=== PATIENT | female | born 1940 | race African-American/Black ===

== ENCOUNTER 2016-04-18 16:13 | Emergency (ER) | payer OTHER ==
[2016-04-18 16:30] VITALS: BP 166/75; PULSE 66; TEMP 99.1; BMI 23.3
[2016-04-18] MEDS ORDERED: predniSONE 20 MG TABLET (UD) PO ONE (20:54)
[2016-04-18] MEDS ORDERED: predniSONE 20 MG TABLET (UD) ONE (20:59)
--- NOTE | 2016-04-18 21:01 | PDOC ---
History of Present Illness - General Chief Complaint: Shortness of Breath Stated Complaint: SHORTNESS OF BREATH Time Seen by Provider: 04/18/16 19:38 History Source: Patient, Family Exam Limitations: No Limitations - History of Present Illness Initial Comments: 04/18/16 20:59 75 yo Female patient presents to ED c/o SOB x 3 days. Patient son reports patient having a history of asthma. They deny fever, CP, back pain, abd pain, cough, dizziness, or any other complaints at this time. Timing/Duration: reports: week Severity: reports: moderate Possible Cause: Yes: occasional episodes Modifying Factors: improves with: albuterol inhaler, albuterol nebulizer Associated Symptoms: reports: denies symptoms Past History - Travel Traveled outside of the country in the last 30 days: No Close contact w/someone who was outside of country & ill: No - Past Medical History Allergies/Adverse Reactions: Allergies Allergy/AdvReac Type Severity Reaction Status Date / Time No Known Allergies Allergy Verified 04/18/16 16:28 Home Medications: Ambulatory Orders Albuterol Sulfate Inhaler - [Ventolin Hfa Inhaler -] 1 - 2 inh PO QID 04/20/15 Brimonidine Tartrate/Timolol [Combigan Eye Drops] 1 drop OP BID #1 bottle Brimonidine Tartrate/Timolol [Combigan Eye Drops] 5 ml OP ASDIR 04/20/15 Carvedilol [Coreg] 25 mg PO BID #60 tablet 04/20/15 Enalapril Maleate [Vasotec -] 20 mg PO BID #60 tablet 04/20/15 Nifedipine 20 mg PO BID #60 capsule 04/20/15 Potassium Chloride [Klor-Con M20] 20 meq PO DAILY #30 tab.er.prt 04/20/15 Naproxen [Naprosyn -] 500 mg PO BID PRN #21 tablet 05/05/15 Azithromycin [Zithromax -] 250 mg PO DAILY #4 tablet 04/18/16 Prednisone [Deltasone -] 30 mg PO DAILY #9 tablet 04/18/16 Cardiac Disorders: Yes (?) HTN: Yes - Psycho/Social/Smoking Cessation Hx Anxiety: No Suicidal Ideation: No Smoking History: Former smoker Have you smoked in the past 12 months: No Information on smoking cessation initiated: No Hx Alcohol Use: No Drug/Substance Use Hx: No Substance Use Type: None Respiratory Specific PMHX - Complaint Specific PMHX Angina: No Bronchitis: No Pneumonia: No Pulmonary Embolus: No TB (Tuberculosis): No Review of Systems - Review of Systems Constitutional: No: Chills, Fever, Night Sweats Respiratory: Yes: Shortness of Breath, Wheezing. No: Cough, Stridor Cardiac (ROS): No: Chest Pain, Chest Tightness ABD/GI: No: Diarrhea, Nausea, Vomiting : No: Dysuria Musculoskeletal: No: Back Pain Neurological: No: Headache, Dizziness *Physical Exam - Vital Signs Last Vital Signs Temp Pulse Resp BP Pulse Ox 99.1 F 66 19 166/75 100 04/18/16 16:28 04/18/16 16:28 04/18/16 16:28 04/18/16 16:28 04/18/16 16:28 - Physical Exam General Appearance: Yes: Nourished, Appropriately Dressed, Mild Distress Neck: positive: Trachea midline, Supple Respiratory/Chest: positive: Wheezing Cardiovascular: positive: Regular Rhythm, Regular Rate Gastrointestinal/Abdominal: positive: Normal Bowel Sounds, Soft Musculoskeletal: positive: Normal Inspection. negative: CVA Tenderness Extremity: positive: Normal Capillary Refill, Normal Inspection, Normal Range of Motion Integumentary: positive: Normal Color, Dry, Warm Neurologic: positive: online content coordinator II-XII NML intact, Fully Oriented, Alert, Normal Mood/ Affect, Normal Response, Motor Strength 5/5 ED Treatment Course - LABORATORY CBC & Chemistry Diagram: 04/18/16 21:07 04/18/16 21:07 - RADIOLOGY Radiology Studies Ordered: Category Date Time Status CHEST PA & LAT [RAD] Stat Radiology 04/18/16 19:54 Completed *DC/Admit/Observation/Transfer Diagnosis at time of Disposition: Asthma Qualifiers: Asthma severity: mild intermittent Asthma complication type: with acute exacerbation Qualified Code(s): J45.21 - Mild intermittent asthma with (acute) exacerbation - Discharge Dispostion Disposition: HOME Condition at time of disposition: Stable Admit: No - Prescriptions Prescriptions: Prednisone [Deltasone -] 30 mg PO DAILY #9 tablet Azithromycin [Zithromax -] 250 mg PO DAILY #4 tablet - Patient Instructions Printed Discharge Instructions: DI for Asthma -- Adult, DI for Acute Bronchitis Additional Instructions: FOLLOW UP WITH YOUR PRIMARY CARE PROVIDER OR [facility] TO ESTABLISH CARE. TAKE MEDICATIONS PRESCRIBED WITH FOOD. RETURN IF SYMPTOMS WORSEN. IF YOU CONTINUE TO EXPERIENCE WHEEZING, DO NEBULIZER TREATMENTS EVERY 4 HOURS NEEDED. Print Language: BURKINAN
--- NOTE | 2016-04-18 21:31 | PDOC ---
*Physical Exam - Vital Signs Last Vital Signs Temp Pulse Resp BP Pulse Ox 99.1 F 66 19 166/75 100 04/18/16 16:28 04/18/16 16:28 04/18/16 16:28 04/18/16 16:28 04/18/16 16:28 ED Treatment Course - LABORATORY CBC & Chemistry Diagram: 04/18/16 21:07 04/18/16 21:07 - Medications Given in the ED: ED Medications Discontinued Medications Generic Name Dose Route Start Last Admin Trade Name Danielle PRN Reason Stop Dose Admin Prednisone 40 mg 04/18/16 20:54 04/18/16 21:01 Deltasone - PO 04/18/16 20:55 40 mg ONCE ONE Administration Medical Decision Making - Medical Decision Making 04/18/16 21:31 agree with care from MICHELLE Davenport *DC/Admit/Observation/Transfer Diagnosis at time of Disposition: Asthma - Discharge Dispostion Disposition: HOME - Prescriptions Prescriptions: Prednisone [Deltasone -] 30 mg PO DAILY #9 tablet Azithromycin [Zithromax -] 250 mg PO DAILY #4 tablet - Patient Instructions Printed Discharge Instructions: DI for Asthma -- Adult, DI for Acute Bronchitis Additional Instructions: FOLLOW UP WITH YOUR PRIMARY CARE PROVIDER OR [facility] TO ESTABLISH CARE. TAKE MEDICATIONS PRESCRIBED WITH FOOD. RETURN IF SYMPTOMS WORSEN. IF YOU CONTINUE TO EXPERIENCE WHEEZING, DO NEBULIZER TREATMENTS EVERY 4 HOURS NEEDED. Print Language: GAMBIAN
[2016-04-18 21:33] LABS: MCH 26.2 pg (25.7-33.7); MCHC 31.6 g/dl (32.0-36.0); MEAN CELL VOLUME 83.2 fl (80-96); MEAN PLT VOLUME 9.8 fl (7.5-11.1); PLATELET COUNT 208 K/MM3 (134-434); RDW 14.9 % (11.6-15.6); WHITE BLOOD COUNT 10.8 K/mm3 (4.0-10.0)
[2016-04-18 21:54] LABS: CALCIUM 8.7 mg/dL (8.5-10.1); CREATININE 1.1 mg/dL (0.55-1.02)
[2016-04-18] MEDS ORDERED: AZITHROMYCIN 250 MG TABLET (FP) PO ONE (22:15)
[2016-04-18] MEDS ORDERED: AZITHROMYCIN 250 MG TABLET (FP) ONE (22:20)
== END 2016-04-18 22:23 | disposition home or self-care (01) ==
LOC: JER 16:13
DX: J45.21 Mild intermittent asthma with (acute) exacerbation (principal)
CPT/HCPCS: 36415; 71020-TC; 80048; 85027; 99282-25

== ENCOUNTER 2018-12-26 12:11 | Emergency (ER) | payer OTHER ==
[2018-12-26 12:25] VITALS: BMI 23.3
--- NOTE | 2018-12-26 12:46 | PDOC ---
History of Present Illness - General Chief Complaint: Pain Stated Complaint: ABD PAIN Time Seen by Provider: 12/26/18 12:25 History Source: Patient Exam Limitations: No Limitations - History of Present Illness Initial Comments: 12/26/18 12:45 78 yo F with a hx of HTN presents to the emergency department with periumbilical pain for 3 days. Per the patient, she began having gradual onset of pain after eating lettuce. She took a pepcid with minimal relief. Pain is described as a burning sensation, non radiating, without aggravating symptoms ( food does not worsen pain). Denies hx of ulcers, gallbladder disease, pancreatitis, and SBO. Endorses having a C/S 40+ years ago. Denies the following : fever, chills, SOB, chest pain, nausea, vomiting, lightheadedness, dizziness, hematochezia, dysuria, hematuria, and leg pain/swelling. Endorses melena for 1 day. Last cardiac work up this year which was within normal limits (per nuclear study). Allergies: NKDA Shx: Refer to above Meds: anti-HTN (does not remember name), and aspirin Social: Denies tobacco, alcohol, and substance abuse. Past History - Past Medical History Allergies/Adverse Reactions: Allergies Allergy/AdvReac Type Severity Reaction Status Date / Time No Known Allergies Allergy Verified 12/26/18 12:25 Home Medications: Ambulatory Orders Albuterol Sulfate Inhaler - [Ventolin Hfa Inhaler -] 1 - 2 inh PO QID 04/20/15 Brimonidine Tartrate/Timolol [Combigan Eye Drops] 1 drop OP BID #1 bottle Carvedilol [Coreg] 25 mg PO BID #60 tablet 04/20/15 Enalapril Maleate [Vasotec -] 20 mg PO BID #60 tablet 04/20/15 Nifedipine 20 mg PO BID #60 capsule 04/20/15 Potassium Chloride [Klor-Con M20] 20 meq PO DAILY #30 tab.er.prt 04/20/15 Naproxen [Naprosyn -] 500 mg PO BID PRN #21 tablet 05/05/15 Cardiac Disorders: Yes (?) COPD: No HTN: Yes - Suicide/Smoking/Psychosocial Hx Smoking History: Unknown if ever smoked Have you smoked in the past 12 months: No Hx Alcohol Use: No Drug/Substance Use Hx: No Substance Use Type: None Review of Systems - Review of Systems Able to Perform ROS?: Yes Is the patient limited Azeri proficient: No Constitutional: No: Chills, Diaphoresis, Fever, Weakness HEENTM: No: Eye Pain, Ear Pain, Nose Pain, Throat Pain, Mouth Pain Respiratory: No: Cough, Shortness of Breath, Hemoptysis Cardiac (ROS): No: Chest Pain, Lightheadedness, Palpitations, Syncope, Chest Tightness ABD/GI: Yes: Abdominal cramping, Tarry Stools. No: Abdominal Distended, Constipated, Diarrhea, Nausea, Poor Appetite, Poor Fluid Intake, Rectal Bleeding , Vomiting, Indigestion : No: Burning, Dysuria, Hematuria Musculoskeletal: No: Back Pain, Joint Pain, Neck Pain Integumentary: No: Bruising, Erythema, Rash Neurological: No: Headache, Numbness, Tingling, Tremors Psychiatric: No: Change in Appetite Endocrine: No: Unexplained Weight Gain Hematologic/Lymphatic: No: Anemia *Physical Exam - Vital Signs Last Vital Signs Temp Pulse Resp BP Pulse Ox 98.4 F 70 16 177/77 H 100 12/26/18 12:15 12/26/18 12:15 12/26/18 12:15 12/26/18 12:15 12/26/18 12:15 - Physical Exam General Appearance: Yes: Nourished, Appropriately Dressed. No: Apparent Distress, Intoxicated HEENT: positive: EOMI, YESSENIA, Normal Voice, Symmetrical, Pharynx Normal, Hearing Grossly Normal. negative: Pale Conjunctivae, Scleral Icterus (R), Scleral Icterus (L), Muffled/Hoarse voice, Pharyngeal Erythema, Tonsillar Exudate, Tonsillar Erythema, Nasal Congestion, Rhinorrhea, Sinus Tenderness, Excessive drooling Neck: positive: Trachea midline, Supple. negative: Tender, Lymphadenopathy (R) , Lymphadenopathy (L), Tender lateral, Tender midline Respiratory/Chest: positive: Lungs Clear, Normal Breath Sounds. negative: Chest Tender, Respiratory Distress, Accessory Muscle Use, Crackles, Rales, Rhonchi, Stridor, Wheezing Cardiovascular: positive: Regular Rhythm, Regular Rate, S1, S2. negative: Systolic Murmur Gastrointestinal/Abdominal: positive: Normal Bowel Sounds, Tender (periumbilical , LLQ, and lower midline tenderness. no rebound), Flat, Soft. negative: Distended, Guarding, Rebound Rectal Exam: positive: normal rectal tone, melena, hemorrhoids (external). negative: decreased tone Lymphatic: negative: Adenopathy Musculoskeletal: positive: Normal Inspection. negative: CVA Tenderness, Vertebral Tenderness Extremity: positive: Normal Capillary Refill, Normal Inspection, Normal Range of Motion. negative: Tender Integumentary: positive: Normal Color, Dry, Warm Neurologic: positive: storage receipt poster II-XII NML intact, Fully Oriented, Alert, Normal Mood/ Affect, Normal Response ED Treatment Course - LABORATORY CBC & Chemistry Diagram: 12/26/18 13:50 12/26/18 13:50 Medical Decision Making - Medical Decision Making 12/26/18 13:03 78 yo F with a hx of HTN presents to the emergency department with periumbilical pain for 3 days. Per the patient, she began having gradual onset of pain after eating lettuce. Initial vitals; Initial Vital Signs Temp Pulse Resp BP Pulse Ox 98.4 F 70 16 177/77 H 100 12/26/18 12:15 12/26/18 12:15 12/26/18 12:15 12/26/18 12:15 12/26/18 12:15 Work up: patient had a nuclear study done 07/2018 within normal limits. in addition, known to have nodularity in the posterior segment in the right upper lobe with improvement from previous CT. 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 due to age, hx, and physical exam; differential is broad/ cardiac: acs vs PNA vs abdominal aneurysm GI: SBO vs colitis vs pancreatitis vs cholelithiasis vs cholecystitis (patient states it sometimes radiates to the RUQ) vs gastroenteritis vs gastritis vs GERD : UTI vs nephrolithiasis Resp: lower lobe PNA Orders: cbc, cmp, lactic acid, troponin, lipase, ua, urine culture, cxr, POCUS abdomen, ekg Interventions: pepcid, NS, and tylenol. POCUS: dilatation of the proximal aorta (3.2 cm) and cholelithiasis noted without GB wall thickening or pericholecystic fluid. However, CBD possibly dilated at 0.7 cm. Will order RUQ US formal. Rectal exam melenotic. Laboratory Tests 12/26/18 12/26/18 12/26/18 13:50 13:50 13:50 WBC 5.9 RBC 4.67 Hgb 12.0 Hct 36.9 MCV 79.1 L MCH 25.6 L MCHC 32.4 RDW 17.3 H Plt Count 169 MPV 10.0 Absolute Neuts (auto) 3.5 Neutrophils % 59.7 Lymphocytes % 26.7 Monocytes % 10.3 H Eosinophils % 2.6 Basophils % 0.7 Nucleated RBC % 0 Sodium 140 Potassium 3.7 Chloride 104 Carbon Dioxide 30 Anion Gap 6 L BUN 18.4 H Creatinine 1.1 Est GFR (CKD-EPI)AfAm 56.48 Est GFR (CKD-EPI)NonAf 48.73 Random Glucose 84 Lactic Acid 0.9 Calcium 9.1 Total Bilirubin 0.6 AST 25 ALT 21 Alkaline Phosphatase 90 Creatine Kinase Troponin I Total Protein 7.9 Albumin 3.8 Lipase Urine Color Urine Appearance Urine pH Ur Specific [place] Urine Protein Urine Glucose (UA) Urine Ketones Urine Blood Urine Nitrite Urine Bilirubin Urine Urobilinogen Ur Leukocyte Esterase Stool Occult Blood 12/26/18 12/26/18 12/26/18 13:50 13:50 13:50 WBC RBC Hgb Hct MCV MCH MCHC RDW Plt Count MPV Absolute Neuts (auto) Neutrophils % Lymphocytes % Monocytes % Eosinophils % Basophils % Nucleated RBC % Sodium Potassium Chloride Carbon Dioxide Anion Gap BUN Creatinine Est GFR (CKD-EPI)AfAm Est GFR (CKD-EPI)NonAf Random Glucose Lactic Acid Calcium Total Bilirubin AST ALT Alkaline Phosphatase Creatine Kinase 138 Troponin I < 0.02 Total Protein Albumin Lipase 144 Urine Color Yellow Urine Appearance Clear Urine pH 7.5 Ur Specific [place] 1.044 H Urine Protein Negative Urine Glucose (UA) Negative Urine Ketones Negative Urine Blood Negative Urine Nitrite Negative Urine Bilirubin Negative Urine Urobilinogen 0.2 Ur Leukocyte Esterase Negative Stool Occult Blood Negative labs within normal limits. CT of the abdomen and pelvis shows diverticulosis and left ovarian cyst measuring ~2.5 cm x 2.5 cm with thickened wall. A copy of the CT report was given to the patient. The patient was reassessed. No tenderness in the abdomen and her pain has resolved. US shows cholelithiasis that is mobile with borderline dilatation of the CBD. Patient to be discharged with follow up with surgery and obgyn. Patient was stable at time of discharge. DIspo: Discharge *DC/Admit/Observation/Transfer Diagnosis at time of Disposition: Cholelithiasis, Left ovarian cyst - Discharge Dispostion Disposition: HOME Decision to Admit order: No - Referrals Referrals: Etienne Field MD [Staff Physician] - Viki Hernandez MD [Primary Care Provider] - Andressa Choudhary MD [Staff Physician] - - Patient Instructions Printed Discharge Instructions: Gallstones, DI for Gallstones Additional Instructions: You were seen in the emergency department for your abdominal pain. Your US shows gallstones in your gallbladder without signs of infection. Your labs are within normal limits. No urinary tract infection was noted. Please follow up with the referred surgeon within 1 week after discharge. This is very important. Your gallstone can become infected and can present complications in the future. It is best to be evaluated by the surgeon as soon as possible. Please return to the emergency department if you have worsening pain or new concerning symptoms such as fevers, chills, uncontrollable nausea and vomiting, and severe pain. Thank you. Please follow up with the OBGYN physician referred to you within 1 week after discharge. - Post Discharge Activity
[2018-12-26] MEDS ORDERED: ACETAMINOPHEN 1000 MG/100 ML VIAL (NON FORMULARY) IVPB ONE (13:04)
[2018-12-26] MEDS ORDERED: SODIUM CHLORIDE 1,000 ML IV STA (13:04)
[2018-12-26] MEDS ORDERED: FAMOTIDINE 20 MG/50 ML IVPB 20 MG/50 ML MG IVPB ONE ×2 (13:04→13:59)
[2018-12-26] MEDS ORDERED: ACETAMINOPHEN INJECTION 100 ML IVPB ONE (13:59)
[2018-12-26 14:08] LABS: BASO % 0.7 % (0-2.0); EOS % 2.6 % (0-4.5); HEMATOCRIT 36.9 % (32.4-45.2); LYMPH % 26.7 % (8-40); MCH 25.6 pg (25.7-33.7); MCHC 32.4 g/dl (32.0-36.0); MEAN CELL VOLUME 79.1 fl (80-96); MONO % 10.3 % (3.8-10.2); NEUT % 59.7 % (42.8-82.8); PLATELET COUNT 169 K/MM3 (134-434); RBC 4.67 M/mm3 (3.60-5.2); RDW 17.3 % (11.6-15.6); WHITE BLOOD COUNT 5.9 K/mm3 (4.0-10.0)
[2018-12-26 14:30] LABS: ALBUMIN 3.8 g/dl (3.4-5.0); BILIRUBIN,TOTAL 0.6 mg/dL (0.2-1); BLOOD UREA NITROGEN 18.4 mg/dL (7-18); CALCIUM 9.1 mg/dL (8.5-10.1); CREATININE 1.1 mg/dL (0.55-1.3); POTASSIUM 3.7 mmol/L (3.5-5.1); TOT PROT 7.9 g/dl (6.4-8.2)
[2018-12-26 14:31] LABS: LIPASE 144 U/L (73-393)
--- NOTE | 2018-12-26 16:21 | PDOC ---
Documentation entered by Avis Bernal SCRIBE, acting as scribe for Jacques Francisco MD. Jacques Francisco MD: This documentation has been prepared by the sharynibeGabe Natalie, SCRIBE, under my direction and personally reviewed by me in its entirety. I confirm that the documentation accurately reflects all work, treatment, procedures, and medical decision making performed by me. Attending Attestation - Resident Resident Name: Abiel Fields - ED Attending Attestation I have performed the following: I have examined & evaluated the patient, The case was reviewed & discussed with the resident, I agree w/resident's findings & plan, Exceptions are as noted - HPI HPI: 12/26/18 14:19 The patient is a 78-year-old female, with a past medical history of HTN, who presents to the ED with 3 days of periumbilical pain after eating lettuce. She describes the pain as constant, burning in sensation, nonradiating, with no exacerbating factors. She reports taking Pepcid with minimal relief of her symptoms and endorses 1 day of dark stool. The patient denies any fevers, chills, nausea, vomiting, diarrhea, or hematochezia. Denies any urinary symptoms. Denies any chest pain or shortness of breath. Allergies: NKA PCP: Dr. Hernandez 12/26/18 16:57 - Physicial Exam PE: 12/26/18 14:26 Exam: Vitals: Triage Vital signs reviewed General Appearance: no acute distress, well nourished well developed, Head: Atraumatic, normocephalic Neck: Supple;No Nuchal rigidity Chest Wall: Nontender Cardiac: Regular rate and rhythm, no murmurs, no rubs, no gallops, Lungs: Clear to auscultation bilateral, good air movement bilaterally, Abdomen: Soft, nondistended, normal bowel sounds, nontender to palpation Extremities: Full range of motion to all extremities, no cyanosis, clubbing, or edema Skin: Warm and dry, no rashes or lesions, no petechiae Neuro: AOX3; Cranial Nerves 2-12 grossly intact, Strength intact to all extremities, Sensation intact to all extremities Psych: normal mood, normal affect - Medical Decision Making 12/26/18 16:57 The patient is a 78-year-old female, with a past medical history of HTN, who presents to the ED with 3 days of periumbilical pain after eating lettuce. She describes the pain as constant, burning in sensation, nonradiating, with no exacerbating factors. She reports taking Pepcid with minimal relief of her symptoms and endorses 1 day of dark stool. Patient completely asymptomatic at this moment her CAT scan demonstrates no acute pathology a mildly thickened ovarian cyst was noticed her urinalysis is pending repeat abdominal examination benign if urinalysis negative patient can be discharged home
[2018-12-26 17:12] LABS: PH,URINE 7.5 (5.0-8.0); URINE APPEARANCE CLEAR; URINE BILIRUBIN NEGATIVE (NEGATIVE); URINE COLOR YELLOW; URINE GLUCOSE (UA) NEGATIVE (NEGATIVE); URINE KETONE NEGATIVE (NEGATIVE); URINE LEUK ESTERASE NEGATIVE (NEGATIVE); URINE NITRITE NEGATIVE (NEGATIVE); URINE PROTEIN NEGATIVE (NEGATIVE); URINE UROBILINOGEN 0.2 mg/dL (0.2-1.0)
[2018-12-26 17:51] VITALS: BP 148/98; PULSE 64; TEMP 97.6
--- NOTE | 2018-12-27 15:09 | EKG ---
Test Reason : Blood Pressure : / mmHG Vent. Rate : 062 BPM Atrial Rate : 062 BPM P-R Int : 226 ms QRS Dur : 096 ms QT Int : 438 ms P-R-T Axes : 018 014 085 degrees QTc Int : 444 ms SINUS RHYTHM WITH 1ST DEGREE A-V BLOCK NONSPECIFIC T WAVE ABNORMALITY ABNORMAL ECG WHEN COMPARED WITH ECG OF 20-APR-2015 12:08, T WAVE INVERSION NO LONGER EVIDENT IN LATERAL LEADS Confirmed by MD NOHELIA, KAY ([id number]) on 12/27/2018 3:08:41 PM Referred By: Confirmed By:KAY POZO MD
== END 2018-12-26 17:51 | disposition home or self-care (01) ==
LOC: JER 12:11
PROC: 3E033NZ Introduction of Analgesics, Hypnotics, Sedatives into Peripheral Vein, Percutaneous Approach (ICD-10-PCS; principal; 2018-12-26)
PROC: 3E033GC Introduction of Other Therapeutic Substance into Peripheral Vein, Percutaneous Approach (ICD-10-PCS; 2018-12-26)
PROC: 3E0337Z Introduction of Electrolytic and Water Balance Substance into Peripheral Vein, Percutaneous Approach (ICD-10-PCS; 2018-12-26)
DX: N83.202 Unspecified ovarian cyst, left side (principal); K80.20 Calculus of gallbladder without cholecystitis without obstruction; I10 Essential (primary) hypertension
CPT/HCPCS: 36415; 74177-TC; 76705-TC; 80053; 81003; 82272; 82550; 83605; 83690; 84484; 85025; 87086; 93005; 93010; 96361; 96365; 96375; 99283-25; J0131; J7030

== ENCOUNTER 2019-02-27 06:07 | Day surgery (SDC) | payer OTHER ==
[2019-02-26 16:45] VITALS: BMI 27.4
[2019-02-27] MEDS ORDERED: BUPIVACAINE HCL/PF 0.5% (5 MG/ML) 30 ML VIAL IJ ONE ×3 (07:14→09:14)
[2019-02-27] MEDS ORDERED: ePHEDrine SULFATE 50 MG/1 ML AMPULE ONE (07:29)
[2019-02-27] MEDS ORDERED: ROCURONIUM BROMIDE 50 MG/5 ML SYRINGE ONE ×2 (07:30)
[2019-02-27] MEDS ORDERED: SUCCINYLCHOLINE CHLORIDE 200 MG/10 ML SYRINGE ONE (07:30)
[2019-02-27] MEDS ORDERED: PROPOFOL 20 ML ONE ×4 (07:30→09:38)
[2019-02-27] MEDS ORDERED: MIDAZOLAM HCL 2 MG/2 ML SINGLE DOSE VIAL ONE (07:32)
[2019-02-27] MEDS ORDERED: fentaNYL CITRATE 250 MCG/5 ML VIAL ONE (07:32)
--- NOTE | 2019-02-27 08:03 | HP ---
History & Physical Update - History History: No Change - Physical Physical: No Change - Assessment Assessment: No Change - Plan Plan: No Change (Last updated on 02/12/19)
[2019-02-27] MEDS ORDERED: ceFAZolin SODIUM 1 GM VIAL IVPB ONE (08:25)
[2019-02-27] MEDS ORDERED: ONDANSETRON 4 MG/2 ML VIAL IVPUSH PRN (08:55)
[2019-02-27] MEDS ORDERED: ACETAMINOPHEN 1000 MG/100 ML VIAL (NON FORMULARY) IVPB ONE ×2 (08:56→11:36)
[2019-02-27] MEDS ORDERED: LACTATED RINGERS SOLUTION 1,000 ML IV SCH (09:00)
--- NOTE | 2019-02-27 09:15 | OP ---
DATE OF OPERATION: 02/27/2019 PREOPERATIVE DIAGNOSIS: Endometrial hyperplasia, endometrial polyps. POSTOPERATIVE DIAGNOSIS: Submucosal myoma and endometrial polyp. OPERATION: Hysteroscopic myomectomy, suction dilation and curettage. SURGEON: Caitlin Rodriguez MD PROCEDURE: Patient was taken to the operating room and placed in a dorsal lithotomy position, prepped and draped in the usual sterile fashion. A time-out was performed in accordance with hospital regulation. Speculum was placed in the vagina. Anterior lip of the cervix was grasped with a single-tooth tenaculum. Cervix then dilated to accommodate the operative hysteroscope. Operative hysteroscope was inserted, and submucosal myoma and endometrial polyps were seen. Cautery and cutting of the endometrial polyps and submucosal myoma was then done. Suction dilation and curettage was done. Repeated procedure until the endometrial cavity was noted to be clean. All instruments were then removed. Patient had tolerated procedure well. Estimated blood loss 5 mL. Andreina [id number]
[2019-02-27] MEDS ORDERED: NEOSTIGMINE METHYLSULFATE 0.5 MG/ML - 10 ML MDV ONE (09:39)
[2019-02-27] MEDS ORDERED: LABETALOL HCL 5 MG/1 ML (100MG/20 ML VIAL) ONE (09:45)
[2019-02-27] MEDS ORDERED: GLYCOPYRROLATE 0.2 MG/1 ML VIAL ONE (09:45)
[2019-02-27] MEDS ORDERED: DEXAMETHASONE SOD PHOSPHATE 4 MG/1 ML VIAL ONE (09:45)
--- NOTE | 2019-02-27 09:53 | OP ---
Operative Note - Note: Operative Date: 02/27/19 Pre-Operative Diagnosis: chronic cholecystitis Operation: laparoscopic cholecystectomy Findings: contracted gb Post-Operative Diagnosis: Same as Pre-op Surgeon: Armen Kennedy Is Support Analyst: William Carmona Anesthesia: General Specimens Removed: gallbladder Estimated Blood Loss (mls): 1 Operative Report Dictated: Yes
--- NOTE | 2019-02-27 10:11 | OP ---
DATE OF OPERATION: 02/27/2019 PROCEDURE: Laparoscopic cholecystectomy. PREOPERATIVE DIAGNOSIS: Chronic cholecystitis and cholelithiasis. POSTOPERATIVE DIAGNOSIS: Chronic cholecystitis and cholelithiasis. SURGEON: Armen Kennedy MD ROLLER PRINT TENDER: JAMAL Valencia ANESTHESIA: General endotracheal. FINDINGS AND PROCEDURE: This is a 78-year-old female who presents with intermittent right upper quadrant pain radiating to the back aggravated by fatty meals. An ultrasound of the gallbladder revealed cholelithiasis. On physical exam, patient has soft abdomen with just mild right upper quadrant tenderness. The patient was advised elective cholecystectomy, and consent was obtained after discussing the risks, benefits, and alternatives of the procedure. Patient was brought to the operating room and placed in supine position. General endotracheal anesthesia was administered. The abdomen was prepped and draped in the usual sterile fashion. Using 0.5% Marcaine, local anesthesia was administered to the proposed incision site. The peritoneal cavity was entered using the Optiview technique where a 5-mm umbilical incision using a 5-mm 30-degree degree scope inserted in a 5-mm optical scope. Pneumoperitoneum was established. Patient was then placed in reverse Trendelenburg left side down position. A 12-mm port was inserted at the subxiphoid region, and two 5-mm ports were inserted at the right subcostal region at the midclavicular and anterior axillary line. The gallbladder fundus was identified and grasped and retracted superiorly. Congenital adhesions of the infundibulum to the stomach were taken down sharply using the hook dissector connected to monopolar cautery. The infundibulum was grasped and retracted inferolaterally to expose the hepatocystic triangle. The visceral peritoneum covering the triangle was scored using the hook dissector connected to monopolar cautery towards the gallbladder bed. A window was created between the gallbladder bed and the proximal gallbladder wall behind the presumed cystic artery creating a critical view of safety. Cystic duct and cystic artery were isolated using the [place] dissector. The cystic artery was initially clipped at 3 points followed by transection leaving 2 clips at the cystic artery stump. Cystic duct was also clipped at 3 points followed by transection leaving 2 clips at the cystic duct stump. The gallbladder was resected from its bed in antegrade fashion using the hook dissector connected to monopolar cautery. When this was completed, the gallbladder was placed in the Endobag and extracted via the subxiphoid port. The gallbladder bed was inspected and was noted to be free of active bleeding. The pneumoperitoneum was evacuated, and the ports were removed. The ports were closed with subcuticular Biosyn 4-0 sutures reinforced with Dermabond. Patient was successfully extubated and transferred to the post anesthesia care unit in satisfactory condition. Estimated blood loss was 1 mL. Wound class clean, contaminated. Patient received 2 g of Ancef prior to the start of the procedure. Andreina [id number] MTDD
--- NOTE | 2019-02-27 10:25 | SURG ---
Surgery Console Operator Note Console Operator: William Carmona PA-C (Suzy) Date of Service: 02/27/19 Diagnosis: chronic cholecystitis Procedure: Operation: laparoscopic cholecystectomy I was present for the entirety of the operative procedure. For further detail, please refer to operative report. Visit type - Case Type Case Type: Scheduled - Emergency Emergency Visit: No - New patient This patient is new to me today: Yes Date on this admission: 02/27/19 - Critical Care Critical Care patient: No
[2019-02-27] MEDS ORDERED: ACETAMINOPHEN INJECTION 100 ML IVPB ONE (11:27)
[2019-02-27 14:07] VITALS: BP 144/80; PULSE 78; TEMP 98
--- NOTE | 2019-03-02 15:27 | PATH ---
Surgical Pathology Report Patient Name: SOLANGE ROSE [facility]. Rec. #: [id number] /Age/Gender: 1940 (Age: 78) / F Account: [id number] Location: [facility] [place] SURGICAL Taken: 02/27/2019 Received: 02/27/2019 Reported: 03/02/2019 Physicians: Andreina Bender M.D. Specimen(s) Received A: ENDOMETRIAL POLYP, SUBMUCOSAL MYOMA B: ENDOMETRIAL CURETTINGS C: GALLBLADDER Clinical History Abdominal pain, endometrial polyp, cholelithiasis Final Diagnosis A. ENDOMETRIAL POLYP, "SUBMUCOSAL MYOMA", HYSTEROSCOPIC MYOMECTOMY: ENDOMETRIAL POLYP. B. ENDOMETRIAL CURETTINGS, SUCTION DILATION AND CURETTAGE: FRAGMENTS OF ENDOMETRIAL POLYP, BENIGN CERVICAL SQUAMOUS MUCOSA, AND RARE ENDOCERVICAL EPITHELIUM. C. GALLBLADDER, LAPAROSCOPIC CHOLECYSTECTOMY: CHRONIC CHOLECYSTITIS WITH CHOLELITHIASIS. ONE BENIGN PERIDUCTAL LYMPH NODE (0/). Electronically Signed Karin Bal M.D. Gross Description A. Received in formalin labeled "endometrial polyp, submucosal myoma," is a 3.2 x 1.0 x 0.3 cm pink-lawrence, polypoid portion of soft tissue. Also received within the same container is a 1.2 x 0.7 x 0.2 cm aggregate of lawrence-pink soft tissue fragments. The specimen is submitted in toto in one cassette. B. Received in formalin labeled "endometrial curettings," is a 1.9 x 1.5 x 0.3 cm aggregate of lawrence pink soft tissue fragments. The formalin is filtered and the specimen is entirely submitted in one cassette. C. Received in formalin, labeled "gallbladder," is an 8.8 x 2.1 x 2.0 cm. gallbladder with a 0.2 cm. in length portion of cystic duct attached. There is a 1.0 cm in greatest dimension lawrence-pink periductal lymph node present. The outer surface is lawrence-pink and varies from smooth to shaggy. The lumen contains green, tenacious bile as well as a 0.5 cm in greatest dimension black, irregular cholelith occluding the cystic duct the lumen. The mucosa is lawrence-brown and velvety. The wall of the gallbladder measures 0.1 cm. in thickness. Palliative Nurse sections are submitted in one cassette. 02/27/2019 located within [facility]02/27/2019
== END 2019-02-27 14:00 | disposition home or self-care (01) ==
LOC: JASU-SURG 06:07
PROVIDERS: ATTEND Obstetrics & Gynecology
PROC: 0UDB7ZX Extraction of Endometrium, Via Natural or Artificial Opening, Diagnostic (ICD-10-PCS; 2019-02-27)
PROC: 0UJD8ZZ Inspection of Uterus and Cervix, Via Natural or Artificial Opening Endoscopic (ICD-10-PCS; 2019-02-27)
PROC: 0FT44ZZ Resection of Gallbladder, Percutaneous Endoscopic Approach (ICD-10-PCS; principal; 2019-02-27 08:04)
PROC: 0UB98ZZ Excision of Uterus, Via Natural or Artificial Opening Endoscopic (ICD-10-PCS; 2019-02-27 08:04)
PROC: 0UB97ZX Excision of Uterus, Via Natural or Artificial Opening, Diagnostic (ICD-10-PCS; 2019-02-27 08:04)
DX: K80.10 Calculus of gallbladder with chronic cholecystitis without obstruction (principal); D25.0 Submucous leiomyoma of uterus; N84.0 Polyp of corpus uteri
CPT/HCPCS: 86850; 86900; 86901; 88304-TC; 88305-TC; 94760; J0131

== ENCOUNTER 2019-03-18 05:46 | Emergency (ER) | payer OTHER ==
[2019-03-18 06:17] VITALS: BMI 27.6
[2019-03-18] MEDS ORDERED: SODIUM CHLORIDE 1,000 ML IV STA (07:26)
[2019-03-18] MEDS ORDERED: FAMOTIDINE 20 MG/50 ML IVPB 20 MG/50 ML MG IVPB ONE ×2 (07:27→08:11)
[2019-03-18 08:29] LABS: URINE APPEARANCE CLEAR; URINE BILIRUBIN NEGATIVE (NEGATIVE); URINE COLOR YELLOW; URINE GLUCOSE (UA) NEGATIVE (NEGATIVE); URINE KETONE NEGATIVE (NEGATIVE); URINE LEUK ESTERASE NEGATIVE (NEGATIVE); URINE NITRITE NEGATIVE (NEGATIVE); URINE PROTEIN NEGATIVE (NEGATIVE)
[2019-03-18 09:23] LABS: BASO % 0.5 % (0-2.0); EOS % 0.6 % (0-4.5); HEMATOCRIT 37.8 % (32.4-45.2); HEMOGLOBIN 12.4 GM/dL (10.7-15.3); LYMPH % 24.2 % (8-40); MCH 26.5 pg (25.7-33.7); MCHC 32.9 g/dl (32.0-36.0); MEAN CELL VOLUME 80.6 fl (80-96); MEAN PLT VOLUME 9.5 fl (7.5-11.1); MONO % 6.5 % (3.8-10.2); NEUT % 68.2 % (42.8-82.8); PLATELET COUNT 189 K/MM3 (134-434); RBC 4.69 M/mm3 (3.60-5.2); RDW 16.4 % (11.6-15.6)
--- NOTE | 2019-03-18 09:41 | PDOC ---
Documentation entered by Eliazar Newton SCRIBE, acting as scribe for Eugenio Uriarte MD. Eugenio Uriarte MD: This documentation has been prepared by the Aman jorgensen Daniel, SCRIBE, under my direction and personally reviewed by me in its entirety. I confirm that the documentation accurately reflects all work, treatment, procedures, and medical decision making performed by me. History of Present Illness - General Chief Complaint: Pain, Acute Stated Complaint: ABD PAIN Time Seen by Provider: 03/18/19 07:18 History Source: Patient Exam Limitations: No Limitations - History of Present Illness Initial Comments: 03/18/19 07:40 Patient is a 78 year old female with a past medical history of cataracts, HTN, and asthma presents with lower abdominal pain, since last night, that is pressure like, 8/10, intermittent, and notes associated nausea, one episode of vomiting, and dizziness. She states that her current pain feels like the last time she had food poisoning. pt also c/o left eye pain, rednes, excessive lacrimation. denies eye melara/vision changes. Patient denies headache, lightheadedness. Denies fever, chills. Denies chest pain, shortness of breath. Denies diarrhea. Denies urinary symptoms. Allergies: NKA Social history: Denies tobacco and alcohol use. Surgical history: cholecystectomy (3 weeks ago) PCP: Viki Hernandez 03/18/19 09:43 Past History - Past Medical History Allergies/Adverse Reactions: Allergies Allergy/AdvReac Type Severity Reaction Status Date / Time No Known Allergies Allergy Verified 03/18/19 06:17 Home Medications: Ambulatory Orders Albuterol Sulfate Inhaler - [Ventolin HFA Inhaler -] 1 - 2 inh PO QID 04/20/15 Amlodipine Besylate [Norvasc -] 5 mg PO DAILY 02/26/19 Carvedilol [Coreg] 12.5 mg PO DAILY 02/26/19 Dorzolamide HCl [Trusopt 2% -] 1 drop OU BID 02/26/19 Latanoprost 2.5 ml OD HS 02/26/19 Lisinopril/Hydrochlorothiazide [Lisinopril-Hctz 10-12.5 mg Tab] 1 each PO DAILY 02/26/19 Montelukast Sodium [Singulair] 10 mg PO DAILY 02/26/19 Docusate Sodium [Colace] 100 mg PO BID 7 Days #14 capsule 02/27/19 Aspirin 81 mg PO DAILY 03/18/19 Anemia: No Asthma: Yes Cancer: No Cardiac Disorders: No (?) CVA: No COPD: No CHF: No Dementia: No Diabetes: No GI Disorders: No Disorders: No HTN: Yes Hypercholesterolemia: No Liver Disease: No Seizures: No Thyroid Disease: No - Psycho Social/Smoking Cessation Hx Smoking History: Never smoked Have you smoked in the past 12 months: No Number of Cigarettes Smoked Daily: 1,988 Hx Alcohol Use: No Drug/Substance Use Hx: No Substance Use Type: None Review of Systems - Review of Systems Able to Perform ROS?: Yes Comments:: 03/18/19 07:40 CONSTITUTIONAL: +dizziness. No fever, no chills, no fatigue EYES: No visual changes ENT: No ear pain, no sore throat CARDIOVASCULAR: No chest pain, no palpitations RESPIRATORY: No cough, no SOB GI: +abdominal pain. +nausea. +vomiting. No constipation, no diarrhea GENITOURINARY: No dysuria, no frequency, no hematuria MUSKULOSKELETAL: No backpain, no joint pain, no myalgias SKIN: No rash NEURO: No headache *Physical Exam - Vital Signs Last Vital Signs Temp Pulse Resp BP Pulse Ox 97.3 F L 67 18 174/84 H 100 03/18/19 05:46 03/18/19 05:46 03/18/19 05:46 03/18/19 05:46 03/18/19 05:46 - Physical Exam 03/18/19 08:11 CONSTITUTIONAL: Well-appearing; well-nourished; in no apparent distress HEAD: Normocephalic; atraumatic EYES: +conjunctival injection bilaterally left worse than right. +mild ptosis left eye. PERRL; EOM intact; od: emelyn-c;ear, pupils is round, reactive; OS: conea is cloudy, pupil is enrique iregular, reactive ENMT: External appears normal; normal oropharynx NECK: Supple; non-tender; no cervical lymphadenopathy CARD: Normal S1, S2; no murmurs, rubs, or gallops RESP: Normal chest excursion with respiration; breath sounds clear and equal bilaterally; no wheezes, rhonchi, or rales ABD: +left lower quadrant tenderness to palpation. Soft, non-distended; no palpable organomegaly, no palpable hernias; lap choly scars noted. EXT: Normal ROM in all four extremities; non-tender to palpation; distal pulses intact SKIN: Warm, dry, no rash NEURO: No focal neurological deficiencies. ED Treatment Course - LABORATORY CBC & Chemistry Diagram: 03/18/19 08:35 03/18/19 08:35 - ADDITIONAL ORDERS Additional order review: Laboratory Results 03/18/19 08:20 Urine Color Yellow Urine Appearance Clear Urine pH 8.0 Ur Specific [place] 1.010 Urine Protein Negative Urine Glucose (UA) Negative Urine Ketones Negative Urine Blood Negative Urine Nitrite Negative Urine Bilirubin Negative Urine Urobilinogen 1.0 Ur Leukocyte Esterase Negative 03/18/19 08:35 RBC 4.69 MCV 80.6 MCHC 32.9 RDW 16.4 H MPV 9.5 Neutrophils % 68.2 Lymphocytes % 24.2 Monocytes % 6.5 Eosinophils % 0.6 Basophils % 0.5 - RADIOLOGY Radiology Studies Ordered: Category Date Time Status ABDOMEN & PELVIS CT W/O CONTR [CT] Stat CT Scan 03/18/19 07:27 Ordered - Medications Given in the ED: ED Medications Discontinued Medications Generic Name Dose Route Start Last Admin Trade Name Freq PRN Reason Stop Dose Admin Famotidine/Sodium Chloride 20 mg in 50 mls @ 100 mls/hr 03/18/19 07:27 08:49 Pepcid 20 Mg Premixed Ivpb - IVPB 03/18/19 07:56 100 mls/hr ONCE ONE Administration Sodium Chloride 1,000 mls @ 1,000 mls/hr 03/18/19 07:26 03/18/19 08:49 Normal Saline - IV 03/18/19 08:25 1,000 mls/hr ASDIR STA Administration Medical Decision Making - Medical Decision Making 03/18/19 11:52 Patient is a 78-year-old female who presented with atraumatic lower abdominal pain that has now resolved. CBC reveals no evidence of acute leukocytosis. CMP is within normal limits. Urinalysis reveals no evidence of pyuria. CT of abdomen pelvis reveals no evidence of acute diverticulitis. Chronic diverticulosis is noted. Also noted is left adnexal cyst as well as uterine prominence for the patient's age. I discussed the CT findings with the patient and she is expressed understanding that she requires an outpatient ultrasound and follow-up with the PMD. As far as patient's left eye is concerned, there is no evidence of purulent discharge or early herpes zoster involving the V1 distribution or ocular shingles involvement. I advised the patient to be reevaluated by ophthalmology promptly and to return immediately for any changes. I do not suspect acute angle glaucoma/iritis/orbital cellulitis at this time. Discharge - Discharge Information Problems reviewed: Yes Clinical Impression/Diagnosis: Diverticulosis Conjunctivitis Qualifiers: Conjunctivitis type: acute Acute conjunctivitis type: unspecified Laterality: left Qualified Code(s): H10.32 - Unspecified acute conjunctivitis, left eye Condition: Stable Disposition: HOME - Follow up/Referral Referrals: Viki Hernandez MD [Primary Care Provider] - Theresa Burns DO [Staff Physician] - - Patient Discharge Instructions Patient Printed Discharge Instructions: DI for Conjunctivitis, DI for Diverticulosis Additional Instructions: Your CAT scan of abdomen pelvis reveals a left sided cyst and prominence of the uterus. It requires an outpatient ultrasound for further evaluation. Please follow-up with your primary care physician who can order the test and then follow-up the results. Please follow-up with your eyeglass cutter regarding the redness and tearing of your left eye. Return immediately for severe pain, decreased vision, or if you break out in a rash. - Post Discharge Activity
[2019-03-18 09:46] LABS: ALBUMIN 3.9 g/dl (3.4-5.0); BILIRUBIN,TOTAL 0.7 mg/dL (0.2-1); BLOOD UREA NITROGEN 12.1 mg/dL (7-18); CALCIUM 8.8 mg/dL (8.5-10.1); CREATININE 1.1 mg/dL (0.55-1.3); POTASSIUM 3.6 mmol/L (3.5-5.1); TOT PROT 7.6 g/dl (6.4-8.2)
[2019-03-18 12:55] VITALS: BP 173/91; PULSE 71; TEMP 97.5
== END 2019-03-18 12:45 | disposition home or self-care (01) ==
LOC: JER 05:46
PROC: 3E033GC Introduction of Other Therapeutic Substance into Peripheral Vein, Percutaneous Approach (ICD-10-PCS; principal; 2019-03-18)
PROC: 3E0337Z Introduction of Electrolytic and Water Balance Substance into Peripheral Vein, Percutaneous Approach (ICD-10-PCS; 2019-03-18)
DX: H10.32 Unspecified acute conjunctivitis, left eye (principal); K57.92 Diverticulitis of intestine, part unspecified, without perforation or abscess without bleeding; I10 Essential (primary) hypertension; J45.909 Unspecified asthma, uncomplicated
CPT/HCPCS: 36415; 74176-TC; 80053; 81003; 83690; 85025; 87086; 96361; 96365; 99283-25; J7030; Q9967

== ENCOUNTER 2019-03-24 12:40 | Emergency (ER) | payer OTHER ==
[2019-03-24 12:55] VITALS: BP 149/78; PULSE 82; TEMP 97.4; BMI 27.4
--- NOTE | 2019-03-24 13:11 | PDOC ---
History of Present Illness - General Chief Complaint: Pain Stated Complaint: STOMACH PAIN/NAUSEA/VOMITING Time Seen by Provider: 03/24/19 13:10 Past History - Past Medical History Allergies/Adverse Reactions: Allergies Allergy/AdvReac Type Severity Reaction Status Date / Time No Known Allergies Allergy Verified 03/24/19 12:55 Home Medications: Ambulatory Orders Albuterol Sulfate Inhaler - [Ventolin HFA Inhaler -] 1 - 2 inh PO QID 04/20/15 Amlodipine Besylate [Norvasc -] 5 mg PO DAILY 02/26/19 Carvedilol [Coreg] 12.5 mg PO DAILY 02/26/19 Dorzolamide HCl [Trusopt 2% -] 1 drop OU BID 02/26/19 Latanoprost 2.5 ml OD HS 02/26/19 Lisinopril/Hydrochlorothiazide [Lisinopril-Hctz 10-12.5 mg Tab] 1 each PO DAILY 02/26/19 Montelukast Sodium [Singulair] 10 mg PO DAILY 02/26/19 Docusate Sodium [Colace] 100 mg PO BID 7 Days #14 capsule 02/27/19 Aspirin 81 mg PO DAILY 03/18/19 Ciprofloxacin [Cipro -] 500 mg PO Q12H #14 tablet 03/18/19 Neomy Sulf/Bacitra/Polymyxin B [Neosporin Ophth Oint -] 1 applic OS Q6H #1 tube 03/18/19 metroNIDAZOLE [Flagyl -] 250 mg PO TID #21 tablet 03/18/19 Anemia: No Asthma: Yes Cancer: No Cardiac Disorders: No (?) CVA: No COPD: No CHF: No Dementia: No Diabetes: No GI Disorders: No Disorders: No HTN: Yes Hypercholesterolemia: No Liver Disease: No Seizures: No Thyroid Disease: No - Immunization History Immunization Up to Date: Yes - Psycho Social/Smoking Cessation Hx Smoking History: Never smoked Have you smoked in the past 12 months: No Number of Cigarettes Smoked Daily: 1,988 Information on smoking cessation initiated: No Hx Alcohol Use: No Drug/Substance Use Hx: No Substance Use Type: None *Physical Exam - Vital Signs Last Vital Signs Temp Pulse Resp BP Pulse Ox 97.4 F L 82 18 149/78 99 03/24/19 12:51 03/24/19 12:51 03/24/19 12:51 03/24/19 12:51 03/24/19 12:51
[2019-03-24] MEDS ORDERED: ONDANSETRON 4 MG/2 ML VIAL IVPUSH ONE (13:18)
[2019-03-24] MEDS ORDERED: ACETAMINOPHEN 1000 MG/100 ML VIAL (NON FORMULARY) IVPB ONE (13:18)
[2019-03-24] MEDS ORDERED: SODIUM CHLORIDE 500 ML IV STA ×2 (13:18→15:05)
[2019-03-24] MEDS ORDERED: FAMOTIDINE 20 MG/50 ML IVPB 20 MG/50 ML MG IVPB ONE ×2 (13:19→13:38)
--- NOTE | 2019-03-24 13:20 | PDOC ---
History of Present Illness - General Chief Complaint: Pain Stated Complaint: STOMACH PAIN/NAUSEA/VOMITING Time Seen by Provider: 03/24/19 13:10 History Source: Patient, Family - History of Present Illness Timing/Duration: reports: other Past History - Past Medical History Allergies/Adverse Reactions: Allergies Allergy/AdvReac Type Severity Reaction Status Date / Time No Known Allergies Allergy Verified 03/24/19 12:55 Home Medications: Ambulatory Orders Albuterol Sulfate Inhaler - [Ventolin HFA Inhaler -] 1 - 2 inh PO QID 04/20/15 Amlodipine Besylate [Norvasc -] 5 mg PO DAILY 02/26/19 Carvedilol [Coreg] 12.5 mg PO DAILY 02/26/19 Dorzolamide HCl [Trusopt 2% -] 1 drop OU BID 02/26/19 Latanoprost 2.5 ml OD HS 02/26/19 Lisinopril/Hydrochlorothiazide [Lisinopril-Hctz 10-12.5 mg Tab] 1 each PO DAILY 02/26/19 Montelukast Sodium [Singulair] 10 mg PO DAILY 02/26/19 Docusate Sodium [Colace] 100 mg PO BID 7 Days #14 capsule 02/27/19 Aspirin 81 mg PO DAILY 03/18/19 Ciprofloxacin [Cipro -] 500 mg PO Q12H #14 tablet 03/18/19 Neomy Sulf/Bacitra/Polymyxin B [Neosporin Ophth Oint -] 1 applic OS Q6H #1 tube 03/18/19 metroNIDAZOLE [Flagyl -] 250 mg PO TID #21 tablet 03/18/19 Acetaminophen [Tylenol -] 500 mg PO Q6H #30 tablet 03/24/19 Ondansetron HCl [Zofran] 4 mg PO Q8H #6 tablet 03/24/19 Anemia: No Asthma: Yes Cancer: No Cardiac Disorders: No (?) CVA: No COPD: No CHF: No Dementia: No Diabetes: No GI Disorders: No Disorders: No HTN: Yes Hypercholesterolemia: No Liver Disease: No Seizures: No Thyroid Disease: No - Immunization History Immunization Up to Date: Yes - Psycho Social/Smoking Cessation Hx Smoking History: Never smoked Have you smoked in the past 12 months: No Number of Cigarettes Smoked Daily: 1,988 Information on smoking cessation initiated: No Hx Alcohol Use: No Drug/Substance Use Hx: No Substance Use Type: None Review of Systems - Review of Systems Constitutional: No: Chills, Fever Respiratory: No: Shortness of Breath Cardiac (ROS): No: Chest Pain, Lightheadedness, Palpitations, Syncope ABD/GI: Yes: Diarrhea, Nausea, Vomiting, Abdominal cramping. No: Blood Streaked Bowels, Constipated, Tarry Stools : No: Dysuria *Physical Exam - Vital Signs Last Vital Signs Temp Pulse Resp BP Pulse Ox 97.4 F L 82 18 149/78 99 03/24/19 12:51 03/24/19 12:51 03/24/19 12:51 03/24/19 12:51 03/24/19 12:51 - Physical Exam General Appearance: Yes: Appropriately Dressed, Moderate Distress HEENT: positive: Normal Voice Neck: positive: Supple Respiratory/Chest: positive: Lungs Clear, Normal Breath Sounds. negative: Respiratory Distress Cardiovascular: positive: Regular Rate, S1, S2 Gastrointestinal/Abdominal: positive: Normal Bowel Sounds, Tender (diffuse ttp) , Soft. 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 No BRBPR, melena fever or chills. Patient was seen in ED 6 days ago for similar symptoms with negative labs and CT abdomen/ pelvis. For unclear reasons patient was started on Cipro/Flagyl by PMD. Of note , CT was neg for diverticulitis but showed diverticulosis. Pt states when she was discharged, symptoms were better but that 3 days ago started having recurrence of symptoms and had diarrhea for the first time. States current symptoms feel different than the symptoms she came in with on prior visit. Per son, has since discontinued antibiotics and states patient was given her last dose yesterday morning. Son states he has noticed that since antibiotics have been discontinued, patient has not had any further diarrheal episodes. Last time vomited was this a.m. and continues to have abdominal pain. No chest pain or shortness of breath. see exam Abd pain w/ n/v ?related to abx use Seen in ED 6 days ago for sxs w/ neg labs/CT but started on cipro/flagyl at request of PMD for unclear reasons Discontinued meds yesterday am w/ improving diarrhea per son Norberto uncomfortable here but stable w/ diffuse ttp -pain control -zofran -IVF -labs -dispo pending 03/24/19 15:06 Labs remarkable for sodium of 128. IV fluids in progress. Will discuss disposition with ED attending 03/24/19 17:05 Patient refusing 2nd dose of IV bolus, only received 500cc bolus of IVF. States pain and nausea has resolved and would like to be discharged. Son at bedside and states he feels safe taking patient home and will follow-up with her PMD in the a.m. Case discussed with Dr. Kelley who states patient can be discharged if feeling better and follow-up with Dr. Hernandez. Reasons to return to ED discussed with patient and son Discharge - Discharge Information Problems reviewed: Yes Clinical Impression/Diagnosis: Hyponatremia Abdominal pain Qualifiers: Abdominal location: generalized Qualified Code(s): R10.84 - Generalized abdominal pain Nausea and vomiting Qualifiers: Vomiting type: unspecified Vomiting Intractability: unspecified Qualified Code( s): R11.2 - Nausea with vomiting, unspecified Diarrhea Qualifiers: Diarrhea type: unspecified type Qualified Code(s): R19.7 - Diarrhea, unspecified Condition: Improved Disposition: HOME - Additional Discharge Information Prescriptions: Acetaminophen [Tylenol -] 500 mg PO Q6H #30 tablet Ondansetron HCl [Zofran] 4 mg PO Q8H #6 tablet - Follow up/Referral - Patient Discharge Instructions Additional Instructions: Please stop the Cipro and Flagyl as medications could possibly be causing your symptoms Take Tylenol and Zofran as needed Please call Dr. Hernandez in the a.m. to discuss ER visit and follow-up with MD to repeat sodium level Turn to ER for any worsening of symptoms - Post Discharge Activity
[2019-03-24] MEDS ORDERED: ACETAMINOPHEN INJECTION 100 ML IVPB ONE (13:37)
[2019-03-24] MEDS ORDERED: ONDANSETRON 4 MG/2 ML VIAL ONE (13:38)
[2019-03-24 14:11] LABS: BASO % 0.6 % (0-2.0); EOS % 0.4 % (0-4.5); HEMATOCRIT 36.4 % (32.4-45.2); HEMOGLOBIN 12.1 GM/dL (10.7-15.3); LYMPH % 18.1 % (8-40); MCH 26.3 pg (25.7-33.7); MCHC 33.3 g/dl (32.0-36.0); MEAN PLT VOLUME 8.9 fl (7.5-11.1); MONO % 10.7 % (3.8-10.2); NEUT % 70.2 % (42.8-82.8); PLATELET COUNT 226 K/MM3 (134-434); RDW 16.1 % (11.6-15.6); WHITE BLOOD COUNT 10.3 K/mm3 (4.0-10.0)
--- NOTE | 2019-03-24 14:31 | EKG ---
Test Reason : Blood Pressure : / mmHG Vent. Rate : 073 BPM Atrial Rate : 073 BPM P-R Int : 226 ms QRS Dur : 106 ms QT Int : 406 ms P-R-T Axes : 079 029 066 degrees QTc Int : 447 ms POOR DATA QUALITY, INTERPRETATION MAY BE ADVERSELY AFFECTED SINUS RHYTHM WITH 1ST DEGREE A-V BLOCK NONSPECIFIC T WAVE ABNORMALITY ABNORMAL ECG WHEN COMPARED WITH ECG OF 26-DEC-2018 13:52, NONSPECIFIC T WAVE ABNORMALITY NOW EVIDENT IN INFERIOR LEADS Confirmed by MD Claude, Tim ([id number]) on 03/24/2019 2:31:20 PM Referred By: Confirmed By:Tim Arce MD
[2019-03-24 14:56] LABS: ALBUMIN 3.5 g/dl (3.4-5.0); BILIRUBIN,TOTAL 0.6 mg/dL (0.2-1); BLOOD UREA NITROGEN 18.4 mg/dL (7-18); CALCIUM 8.4 mg/dL (8.5-10.1); CREATININE 1.2 mg/dL (0.55-1.3); POTASSIUM 3.6 mmol/L (3.5-5.1); TOT PROT 7.4 g/dl (6.4-8.2)
== END 2019-03-24 17:08 | disposition home or self-care (01) ==
LOC: JER 12:40
PROC: 3E033NZ Introduction of Analgesics, Hypnotics, Sedatives into Peripheral Vein, Percutaneous Approach (ICD-10-PCS; principal; 2019-03-24)
PROC: 3E033GC Introduction of Other Therapeutic Substance into Peripheral Vein, Percutaneous Approach (ICD-10-PCS; 2019-03-24)
DX: E87.1 Hypo-osmolality and hyponatremia (principal); R10.84 Generalized abdominal pain; R11.2 Nausea with vomiting, unspecified; R19.7 Diarrhea, unspecified; I10 Essential (primary) hypertension; J45.909 Unspecified asthma, uncomplicated; H40.9 Unspecified glaucoma
CPT/HCPCS: 36415; 80053; 82550; 82553; 83690; 84484; 85025; 93005; 93010; 96365; 96375; 99283-25; J0131

== ENCOUNTER 2021-03-11 22:59 | Emergency (ER) | payer OTHER ==
[2021-03-11 23:05] VITALS: TEMP 97.4; BMI 25.7
[2021-03-11] MEDS ORDERED: amLODIPine BESYLATE 5 MG TABLET (FP) PO ONE (23:43)
[2021-03-12 00:36] LABS: BASO % 0.7 % (0-2.0); EOS % 1.9 % (0-4.5); HEMOGLOBIN 12.7 GM/dL (10.7-15.3); MCH 28.1 pg (25.7-33.7); MCHC 33.4 g/dl (32.0-36.0); MEAN CELL VOLUME 84.2 fl (80-96); MEAN PLT VOLUME 8.9 fl (7.5-11.1); MONO % 8.2 % (3.8-10.2); NEUT % 66.2 % (42.8-82.8); PLATELET COUNT 177 10^3/uL (134-434); RBC 4.51 M/mm3 (3.60-5.2); RDW 14.5 % (11.6-15.6); WHITE BLOOD COUNT 8.8 K/mm3 (4.0-10.0)
[2021-03-12 00:44] LABS: INR 1.2 (0.83-1.09); PROTHROMBIN TIME (PATIENT) 13.5 SEC (9.7-13.0)
[2021-03-12 00:46] LABS: ACTIVATED PTT 28.8 SECONDS (25.2-36.5)
[2021-03-12 00:48] LABS: CHLORIDE 107 mmol/L (98-107); SODIUM 141 mmol/L (136-145)
[2021-03-12 00:50] LABS: CALCIUM 8.4 mg/dL (8.5-10.1)
[2021-03-12 00:51] LABS: ALBUMIN 3.5 g/dl (3.4-5.0); ANION GAP 8 MMOL/L (8-16); BLOOD UREA NITROGEN 13.9 mg/dL (7-18); CO2 26 mmol/L (21-32); GLUCOSE,RANDOM 95 mg/dL (74-106)
[2021-03-12 00:54] LABS: CREATININE 1.2 mg/dL (0.55-1.3); SGOT/AST 23 U/L (15-37); SGPT/ALT 21 U/L (13-61)
[2021-03-12 00:56] LABS: BILIRUBIN,TOTAL 0.6 mg/dL (0.2-1); TOT PROT 7.6 g/dl (6.4-8.2)
[2021-03-12 00:57] LABS: ALK PHOS 76 U/L (45-117)
[2021-03-12 06:12] VITALS: BP 144/98; PULSE 65
== END 2021-03-12 06:13 | disposition home or self-care (01) ==
LOC: JER 22:59
DX: R06.02 Shortness of breath (principal)
CPT/HCPCS: 36415; 71046-TC-FY; 71275-TC; 80053; 82550; 84484; 85025; 85379; 85610; 85730; 87804; 93005; 93010; 99284-25; C9803; Q9967; U0003; U0005